=== PATIENT | male | born 1995 | race Caucasian/White ===

== ENCOUNTER 2018-05-26 15:04 | Emergency (ER) | payer BC ==
--- NOTE | 2018-05-26 15:40 | ED Physician Documentation ---
History of Present Illness - Stated complaint Stated Complaint: MALE - Chief complaint Chief Complaint: General - History obtained from History obtained from: Patient - History of Present Illness Timing: Today (This is an otherwise healthy 22-year-old gentleman who last ate at 12:30 PM today who had mild testicular pain this morning on the left it became much more severe about 2 hours ago.) Review of Systems Ten Systems: 10 systems reviewed and negative Constitutional: denies: Fever, Chills Throat: denies: Dental pain / toothache, Sore throat Cardiac: denies: Chest pain / pressure, Palpitations Respiratory: denies: Dyspnea, Cough PD PAST MEDICAL HISTORY - Past Medical History Past Medical History: No - Social History Does the pt have substance abuse?: No - Family History Family history: reports: Non contributory PD ED PE NORMAL - Vitals Vital signs reviewed: Yes - General General: Alert and oriented X 3, No acute distress - HEENT HEENT: PERRL, EOMI - Neck Neck: Supple, no meningeal sign, No bony TTP - Cardiac Cardiac: RRR, No murmur - Respiratory Respiratory: No respiratory distress, Clear bilaterally - Abdomen Abdomen: Soft, Non tender - Male Male : Other (The left testicle is mildly tender, he lacked a cremaster reflex on the left. The testicle was externally rotated during examination with partial pain relief.) - Back Back: No CVA TTP, No spinal TTP - Derm Derm: Normal color, Warm and dry - Extremities Extremities: No edema, No calf tenderness / cord - Neuro Neuro: Alert and oriented X 3, Normal speech - Psych Psych: Normal mood, Normal affect Results - Vitals Vitals: Vital Signs - 24 hr 05/26/18 15:17 Temperature 36.9 C Heart Rate 96 Respiratory 16 Rate Blood Pressure 115/73 O2 Saturation 99 Oxygen O2 Source Room air - Labs Labs: Laboratory Tests 05/26/18 05/26/18 05/26/18 15:40 15:40 15:40 WBC 12.1 H RBC 5.24 Hgb 16.0 Hct 46.0 MCV 87.7 MCH 30.6 MCHC 34.9 RDW 12.9 Plt Count 273 MPV 6.9 L Neut # (Auto) 9.3 H Lymph # (Auto) 2.3 Alpine # (Auto) 0.4 Eos # (Auto) 0.1 Baso # (Auto) 0.1 Absolute Nucleated RBC 0.01 Nucleated RBC % 0.1 PT 12.7 H INR 1.1 Sodium 138 Potassium 4.0 Chloride 103 Carbon Dioxide 27 Anion Gap 8.0 BUN 18 Creatinine 0.8 Estimated GFR (MDRD) 119 Glucose 107 H Calcium 9.0 Total Bilirubin 0.8 AST 25 ALT 26 Alkaline Phosphatase 61 Total Protein 7.6 Albumin 4.7 Globulin 2.9 Albumin/Globulin Ratio 1.6 Lipase 33 - Rads (name of study) scrotal sono Radiology: EMP read contemporaneously (Bilateral epididymal head cysts, otherwise unremarkable without abnormal blood flow.) PD MEDICAL DECISION MAKING - ED course ED course: This is a 22-year-old gentleman who is clinically high risk for testicular torsion given the lack of cremaster reflex and pain with improvement after externally rotating the testicle. I paged the closest urologist, [facility] after my evaluation and spoke with Dr. Anne they are at 3:50 PM who would like a Doppler ultrasound prior to accepting the patient. After the ultrasound I tried paging urologist again several times, there was no return call. The family also knows a urologist at [facility], and they were paged as well. Actually ended up speaking with Dr. Magallanes, at [facility]. The case was discussed and he feels what most likely happened is that I detorsed it during examination and he at this point needs urology follow-up but does not need an urgent orchiopexy. Departure - Departure Disposition: 01 Home, Self Care Clinical Impression: Left testicular pain Condition: Serious Record reviewed to determine appropriate education?: Yes Comments: As discussed return immediately if pain becomes severe again. Otherwise follow- up with Dr. Jimenez, the urologist at [facility]. Let him know that we had a high suspicion for testicular torsion tonight based on lack of cremaster reflex on the left. Let him know that during examination here we detorsed you manually with external rotation and this improved but did not completely diminish her pain. After that an ultrasound was done showing normal Doppler flow.
[2018-05-26 15:52] LABS: BASOPHILS # (AUTO) 0.1 10^3/uL (0.0-0.1); BASOPHILS % (AUTO) 0.4 %; EOSINOPHILS # (AUTO) 0.1 10^3/uL (0.0-0.7); LYMPHOCYTES # (AUTO) 2.3 10^3/uL (1.5-3.5); LYMPHOCYTES % (AUTO) 18.6 %; MEAN CORPUSCULAR HEMOGLOBIN 30.6 pg (27.0-31.0); MEAN CORPUSCULAR HGB CONC 34.9 g/dL (32.0-36.0); MEAN CORPUSCULAR VOLUME 87.7 fL (80.0-94.0); MEAN PLATELET VOLUME 6.9 fL (7.4-11.4); MONOCYTES # (AUTO) 0.4 10^3/uL (0.0-1.0); MONOCYTES % (AUTO) 3.6 %; NEUTROPHILS # (AUTO) 9.3 10^3/uL (1.5-6.6); NEUTROPHILS % (AUTO) 76.4 %; PLT - PLATELET COUNT 273 10^3/uL (130-450); RED BLOOD COUNT 5.24 10^6/uL (4.70-6.10); RED CELL DISTRIBUTION WIDTH 12.9 % (12.0-15.0); WHITE BLOOD COUNT 12.1 x10^3/uL (4.8-10.8)
[2018-05-26 16:01] LABS: INR 1.1 (0.8-1.2); PT - PROTHROMBIN TIME 12.7 secs (9.9-12.6)
[2018-05-26] MEDS ORDERED: MORPHINE 2 MG/ML CARPUJECT IVP STA (16:05)
[2018-05-26 16:06] LABS: ALBUMIN 4.7 g/dL (3.2-5.5); ALBUMIN/GLOBULIN RATIO 1.6 (1.0-2.2); BILIRUBIN,TOTAL 0.8 mg/dL (0.2-1.0); CREATININE 0.8 mg/dL (0.6-1.2); TOTAL PROTEIN 7.6 g/dL (6.7-8.2)
--- NOTE | 2018-05-26 17:20 | Ultrasound Report ---
Reason: R testicle pain Procedure Date: 05/26/2018 Accession Number: [id number] / [id number] Procedure: US - Testicle w/Doppler CPT Code: FULL RESULT: EXAM: SCROTAL ULTRASOUND EXAM DATE: 05/26/2018 05:01 PM. CLINICAL HISTORY: Right testicular pain. COMPARISON: None. TECHNIQUE: Real-time scanning was performed with static images obtained. Color-flow images were utilized. FINDINGS: Right: Testis: 4.4 x 2.6 x 3.8 cm. No evidence of mass. Contains just a few microcalcifications (1-2 per field). Normal flow. Epididymis: 0.7 x 0.9 x 0.9 cm. There is a 2 mm epididymal head cyst. No evidence of epididymitis. Hydrocele: None. Varicocele: None. Left: Testis: 4.1 x 2.6 x 3.3 cm. Normal size and echotexture. No mass, calcification, or abnormal blood flow. Epididymis: 0.9 x 0.8 x 1.0 cm. There is a 6 mm epididymal head cyst. No evidence of epididymitis. Hydrocele: Trace. Varicocele: None. IMPRESSION: 1. Bilateral epididymal head cysts, otherwise unremarkable scrotal ultrasound exam. [facility]
[2018-05-26 19:08] VITALS: BP 105/65
== END 2018-05-26 19:02 | disposition home or self-care (01) ==
LOC: ED 15:04
DX: N50.812 Left testicular pain (principal)
CPT/HCPCS: 36415; 76870; 80053; 83690; 85025; 85610; 93975; 96374; 99283